=== PATIENT | female | born 1995 | race Caucasian/White ===

== ENCOUNTER 2018-11-22 17:41 | Inpatient (IN) | payer OTHER ==
[~2018-11-22] VITALS: Ht 170.2 cm; Wt 64.6 kg
[2018-11-22 18:30] VITALS: BP 122/73; PULSE 87; RESP 18
[2018-11-22 20:03] VITALS: BP 113/55; PULSE 87; RESP 18
[2018-11-22 20:07] VITALS: Ht 170.2 cm; Wt 64.6 kg
[2018-11-22] MEDS ORDERED: METH10TA2 PO (20:20)
[2018-11-22] MEDS ORDERED: DEXTROSE 5%-0.45% NACL 1,000 ML IV SCH (21:00)
[2018-11-22] MEDS ORDERED: NACL 0.9% 3 ML SYG IV SCH (21:00)
[2018-11-22] MEDS ORDERED: ONDANSETRON 4 MG INJ IV PRN (21:00)
--- NOTE | 2018-11-22 21:21 | HP ---
Date/Time of Note Date/Time of Note DATE: 11/22/18 TIME: 21:21 Assessment/Plan VTE Prophylaxis SCD applied (from Nsg): Yes Pharmacological prophylaxis: NA/contraindicated Pharm contraindication: low risk/ambulating, other (Patient with choledocholithiasis. Awaiting surgical and GI evaluation) Assessment/Plan Assessment/Plan 1. Choledocholithiasis -Ultrasound at the outside facility shows a dilated CBD measuring 10 mm. No gallstones or pericholecystic fluid -Keep n.p.o. with IV fluid -MRCP -GI and surgical consult 2. History of heroin abuse: On methadone HPI/ROS Admit Date/Time Admit Date/Time Nov 22, 2018 at 18:17 Hx of Present Illness This is a 22-year-old female with a history of heroin, currently on methadone who initially presented to an outside hospital complaining of abdominal pain. Symptom has been progressively getting worse for the past several weeks. Pain is mainly localized in the right upper quadrant area. She also reported intermittent nausea and vomiting. At the outside facility, ultrasound shows a dilated CBD measuring 10 mm, but no gallstones or pericholecystic fluid. AST and ALT slightly elevated at 48 and 85 respectively. T-bili WNL. WBC 9 PMH/Family/Social Past Medical History Medical History: other (See HPI) Medications Current Medications Methadone HCl (Methadone) 85 mg ONCE ONCE PO ; Start 11/23/18 at 07:00; Stop 11/23/18 at 07:01; Status UNV Dextrose/Sodium Chloride 1,000 ml @ 100 mls/hr Q10H IV ; Start 11/22/18 at 20:59 IV Flush (NS 3 ml) 3 ml PER PROTOCOL IV ; Start 11/22/18 at 21:00 Ondansetron HCl (Zofran Inj) 4 mg Q6H PRN IV NAUSEA/VOMITING; Start 11/22/18 at 21:00 Methadone HCl (Methadone) 85 mg DAILY PO ; Start 11/23/18 at 09:00; Status UNV Coded Allergies: No Known Allergies (Verified Allergy, Unknown, 03/10/12) Past Surgical History Past Surgical Hx: other (See HPI) Family History Significant Family History: no pertinent family hx Social History Alcohol Use: none Smoking Status: Unknown if ever smoked Drug Use: other (History of heroin abuse, currently on methadone) Exam/Review of Systems Vital Signs Vitals Vital Signs Date Temp Pulse Resp B/P (MAP) Pulse Ox O2 O2 Flow FiO2 Time Delivery Rate 11/22/18 98.1 87 18 113/55 99 20:03 (74) 11/22/18 Room Air 18:30 Exam Constitutional: alert, oriented, well developed Head: normocephalic, atraumatic Eyes: EOMI, PERRL Respiratory: clear to auscultation, normal air movement Cardiovascular: regular rate and rhythm Gastrointestinal: soft, tender Extremities: normal pulses RAE BERMAN MD Nov 22, 2018 21:21
[2018-11-22] MEDS: DEXTROSE 5%-0.45% NACL 1,000 ML IV SCH (22:14)
[2018-11-22] MEDS: KETOROLAC 30 MG INJ IV PRN (22:14)
[2018-11-23] VITALS (13 sets, daily range): BP systolic 103–126; BP diastolic 60–82; PULSE 79–100; RESP 12–18
[2018-11-23] MEDS: traMADol 50 MG TAB PO PRN (03:18)
[2018-11-23] MEDS: DEXTROSE 5%-0.45% NACL 1,000 ML IV SCH ×3 (06:12→22:20)
[2018-11-23] MEDS: KETOROLAC 30 MG INJ IV PRN ×3 (06:14→21:37)
[2018-11-23] MEDS: METHADONE 10 MG TAB PO SCH (06:51)
[2018-11-23] MEDS ORDERED: METHADONE 10 MG TAB PO ONE (07:00)
[2018-11-23] MEDS ORDERED: LORAZEPAM 2 MG INJ IV ONE (10:30)
[2018-11-23] MEDS ORDERED: AL HYDROX/MG HYDROX/SIMETH 30 ML CUP PO PRN (13:00)
--- NOTE | 2018-11-23 13:40 | PN ---
Date/Time of Note Date/Time of Note DATE: 11/23/18 TIME: 13:19 Assessment/Plan VTE Prophylaxis Risk score (from Ns)>0 risk: 0 SCD applied (from Ns): Yes Pharmacological prophylaxis: other Pharm contraindication: other Lines/Catheters IV [facility]ter Type (from [facility]): Peripheral IV Assessment/Plan Assessment/Plan 1. Choledocholithiasis, questionable small distal CBD stone, needs ERCP by GI, surgery consult for cholecystectomy after 2. History of heroin abuse: On methadone Result Diagram: 11/23/18 0546 11/23/18 0546 Results 24hrs Laboratory Tests Test 11/23/18 05:46 White Blood Count 6.3 Red Blood Count 3.75 L Hemoglobin 10.9 L Hematocrit 34.2 L Mean Corpuscular Volume 91.2 Mean Corpuscular Hemoglobin 29.1 Mean Corpuscular Hemoglobin Concent 31.9 L Red Cell Distribution Width 12.8 Platelet Count 255 Mean Platelet Volume 9.2 Immature Granulocytes % 0.200 Neutrophils % 40.1 Lymphocytes % 42.4 Monocytes % 9.3 Eosinophils % 7.5 H Basophils % 0.5 Nucleated Red Blood Cells % 0.0 Immature Granulocytes # 0.010 Neutrophils # 2.5 Lymphocytes # 2.7 Monocytes # 0.6 Eosinophils # 0.5 Basophils # 0.0 Nucleated Red Blood Cells # 0.0 Sodium Level 138 Potassium Level 4.3 Chloride Level 104 Carbon Dioxide Level 28 Anion Gap 6 Blood Urea Nitrogen 9 Creatinine 0.61 Est Glomerular Filtrat Rate mL/min > 60 Glucose Level 98 Hemoglobin A1c 5.1 Calcium Level 8.6 Phosphorus Level 4.1 Magnesium Level 2.0 Total Bilirubin 0.2 Direct Bilirubin 0.00 Indirect Bilirubin 0.2 Aspartate Amino Transf (AST/SGOT) 59 H Alanine Aminotransferase (ALT/SGPT) 84 H Alkaline Phosphatase 73 Total Protein 5.8 L Albumin 3.1 L Globulin 2.70 Albumin/Globulin Ratio 1.14 Triglycerides Level 52 Cholesterol Level 127 LDL Cholesterol, Calculated 70 HDL Cholesterol 47 Cholesterol/HDL Ratio 2.7 Lipase 27 Subjective 24 Hr Interval Summary Free Text/Dictation abdominal pain Exam/Review of Systems Exam Vitals Vital Signs Date Temp Pulse Resp B/P (MAP) Pulse Ox O2 O2 Flow FiO2 Time Delivery Rate 11/23/18 98.6 91 18 112/67 94 08:00 (82) 11/23/18 Room Air 02:38 Intake and Output 11/22/18 11/22/18 11/23/18 1515:00 23:00 07:00 IntakeIntake Total 1000 ml BalanceBalance 1000 ml Constitutional: alert, oriented, well developed Psych: no complaints, nl mood/affect Head: normocephalic, atraumatic Eyes: nl conjunctiva, EOMI, nl lids ENMT: nl external ears & nose, nl lips & teeth, nl nasal mucosa & septum Neck: supple, non-tender Respiratory: clear to auscultation, normal air movement; No congested cough, No crackles/rales, No diminished breath sounds, No intercostal retraction, No labored breathing, No respirations, No tactile fremitus, No wheezing, No other Cardiovascular: regular rate and rhythm, nl pulses; No bruits, No diastolic murmur, No edema, No gallop, No irregular rhythm, No jugular venous distention (JVD), No murmurs/extra sounds, No rub, No systolic murmur, No S3, No S4, No other Gastrointestinal: soft, nl liver, spleen, other (epigastric and right upper abdominal tenderness) Musculoskeletal: nl extremities to inspection Extremities: normal pulses; No calf tenderness, No cyanosis, No clubbing, No edema, No pitting pedal edema, No palpable cord, No tenderness, No other Neurological: SPANISHER II-XII intact, nl mental status, nl speech, nl strength Skin: nl turgor Results Results 24hrs Laboratory Tests Test 11/23/18 05:46 White Blood Count 6.3 Red Blood Count 3.75 L Hemoglobin 10.9 L Hematocrit 34.2 L Mean Corpuscular Volume 91.2 Mean Corpuscular Hemoglobin 29.1 Mean Corpuscular Hemoglobin Concent 31.9 L Red Cell Distribution Width 12.8 Platelet Count 255 Mean Platelet Volume 9.2 Immature Granulocytes % 0.200 Neutrophils % 40.1 Lymphocytes % 42.4 Monocytes % 9.3 Eosinophils % 7.5 H Basophils % 0.5 Nucleated Red Blood Cells % 0.0 Immature Granulocytes # 0.010 Neutrophils # 2.5 Lymphocytes # 2.7 Monocytes # 0.6 Eosinophils # 0.5 Basophils # 0.0 Nucleated Red Blood Cells # 0.0 Sodium Level 138 Potassium Level 4.3 Chloride Level 104 Carbon Dioxide Level 28 Anion Gap 6 Blood Urea Nitrogen 9 Creatinine 0.61 Est Glomerular Filtrat Rate mL/min > 60 Glucose Level 98 Hemoglobin A1c 5.1 Calcium Level 8.6 Phosphorus Level 4.1 Magnesium Level 2.0 Total Bilirubin 0.2 Direct Bilirubin 0.00 Indirect Bilirubin 0.2 Aspartate Amino Transf (AST/SGOT) 59 H Alanine Aminotransferase (ALT/SGPT) 84 H Alkaline Phosphatase 73 Total Protein 5.8 L Albumin 3.1 L Globulin 2.70 Albumin/Globulin Ratio 1.14 Triglycerides Level 52 Cholesterol Level 127 LDL Cholesterol, Calculated 70 HDL Cholesterol 47 Cholesterol/HDL Ratio 2.7 Lipase 27 Medications Medication Current Medications Dextrose/Sodium Chloride 1,000 ml @ 100 mls/hr Q10H IV Last administered on 11/23/18 06:12; Admin Dose 100 MLS/HR; Start 11/22/18 at 20:59 IV Flush (NS 3 ml) 3 ml PER PROTOCOL IV ; Start 11/22/18 at 21:00 Ondansetron HCl (Zofran Inj) 4 mg Q6H PRN IV NAUSEA/VOMITING; Start 11/22/18 at 21:00 Methadone HCl (Methadone) 85 mg DAILY@0600 PO Last administered on 11/23/18 06:51; Admin Dose 85 MG; Start 11/23/18 at 06:00 Ketorolac Tromethamine (Toradol) 30 mg Q6H PRN IV PAIN LEVEL 1-3 Last admi nistered on 11/23/18at 06:14; Admin Dose 30 MG; Start 11/22/18 at 22:00; Stop 11/25/18 at 21:59 Tramadol HCl (Ultram) 50 mg Q6H PRN PO MODERATE PAIN LEVEL 4-6 Last administered on 11/23/18at 03:18; Admin Dose 50 MG; Start 11/23/18 at 03:30 Al Hydrox/Mg Hydrox/Simethicone (Mag-Al Plus) 30 ml Q6H PRN PO GASTROINTESTINAL UPSET Last administered on 11/23/18at 12:56; Admin Dose 30 ML; Start 11/23/18 at 13:00 JALEN HOGAN MD Nov 23, 2018 13:29
--- NOTE | 2018-11-23 16:11 | CONS ---
Assessment/Plan Assessment/Plan Assessment/Plan (Daily) Assessment: Cholelithiasis Questionable choledocholithiasis on MRCP Nausea/vomiting Right upper quadrant pain Transaminitis Heroin abuse -on methadone treatment Plan: EGD today -rule out peptic ulcer disease Keep n.p.o. 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 Patient reports her symptoms started 1-1/2 months ago with intermittent abdominal pain, nausea and nonbloody vomiting. Transaminitis was noted on admission with normal bilirubin. MRCP shows mildly dilated common bile duct with questionable stone. Patient reports history of dyspepsia in the past. She is on methadone treatment for heroin addiction. Currently denies nausea, vomiting, fever or diarrhea. No history of EGD or colonoscopy in the past. We will schedule the patient for EGD today to rule out peptic ulcer disease. Risks and benefits of the procedure have been discussed with the patient. Patient is agreeable to the procedure. Gastrointestinal: no complaints (See HPI) Past Medical History Medical History: other (See HPI) Home Meds Reported Medications Methadone Hcl* (Methadone*) 10 Mg Tab, 85 MG PO, TAB 11/22/18 [None] No Conflict Check 03/10/12 Medications Current Medications Dextrose/Sodium Chloride 1,000 ml @ 100 mls/hr Q10H IV Last administered on 11/23/18at 06:12; Admin Dose 100 MLS/HR; Start 11/22/18 at 20:59 IV Flush (NS 3 ml) 3 ml PER PROTOCOL IV ; Start 11/22/18 at 21:00 Ondansetron HCl (Zofran Inj) 4 mg Q6H PRN IV NAUSEA/VOMITING; Start 11/22/18 at 21:00 Methadone HCl (Methadone) 85 mg DAILY@0600 PO Last administered on 11/23/18at 06:51; Admin Dose 85 MG; Start 11/23/18 at 06:00 Ketorolac Tromethamine (Toradol) 30 mg Q6H PRN IV PAIN LEVEL 1-3 Last administered on 11/23/18at 14:52; Admin Dose 30 MG; Start 11/22/18 at 22:00; Stop 11/25/18 at 21:59 Tramadol HCl (Ultram) 50 mg Q6H PRN PO MODERATE PAIN LEVEL 4-6 Last administered on 11/23/18at 03:18; Admin Dose 50 MG; Start 11/23/18 at 03:30 Al Hydrox/Mg Hydrox/Simethicone (Mag-Al Plus) 30 ml Q6H PRN PO GASTROINTESTINAL UPSET Last administered on 11/23/18at 12:56; Admin Dose 30 ML; Start 11/23/18 at 13:00 Allergies: Coded Allergies: No Known Allergies (Verified Allergy, Unknown, 03/10/12) Past Surgical History Past Surgical Hx: other (See HPI) Social History Alcohol Use: none Smoking Status: Unknown if ever smoked Drug Use: heroin, other (History of heroin abuse, currently on methadone) Exam/Review of Systems Exam Vitals Vital Signs Date Temp Pulse Resp B/P (MAP) Pulse Ox O2 O2 Flow FiO2 Time Delivery Rate 11/23/18 98.6 100 18 119/72 96 14:00 (88) 11/23/18 Room Air 02:38 Intake and Output 11/22/18 11/22/18 11/23/18 1515:00 23:00 07:00 IntakeIntake Total 1000 ml BalanceBalance 1000 ml Exam PHYSICAL EXAMINATION: GENERAL: Well developed, well nourished, alert & oriented x 3, in no acute distress SKIN: No lesions, no stigmata chronic liver disease, no evidence of bleeding diathesis LYMPHATIC: No palpable lymphadenopathy. HEAD: Normocephalic, atraumatic, no tenderness. EYES: Pupils equal reactive to light and accommodation, full extraocular movements, sclera clear, non-icteric, no discharge. EARS/NOSE AND THROAT: Ears normal, nose normal, oropharynx normal, oral membranes well hydrated without lesions. NECK: Supple, no masses, thyroid normal, JVP within normal limits, carotids normal without bruits. CHEST: Inspection within normal limits. CARDIOVASCULAR: Heart: Regular rate and rhythm, no murmurs, gallops or rubs. Peripheral pulses present within normal limits, no cyanosis, clubbing or edemas. No pulsatile abdominal mass RESPIRATORY: Lungs clear to auscultation and percussion, no wheezing, no rubs GASTROINTESTINAL AND LIVER: Abdomen: Soft, generalized tenderness, non- distended, no hernias, no masses, no organomegaly, no ascites, no guarding, no rebound tenderness, normoactive bowel sounds. Rectal: Deferred. GENITOURINARY: Female genitalia within normal limits. EXTREMITIES: No cyanosis, clubbing or edema. Results Result Diagram: 11/23/18 0546 11/23/18 0546 Results 24hrs Laboratory Tests Test 11/23/18 05:46 White Blood Count 6.3 Red Blood Count 3.75 L Hemoglobin 10.9 L Hematocrit 34.2 L Mean Corpuscular Volume 91.2 Mean Corpuscular Hemoglobin 29.1 Mean Corpuscular Hemoglobin Concent 31.9 L Red Cell Distribution Width 12.8 Platelet Count 255 Mean Platelet Volume 9.2 Immature Granulocytes % 0.200 Neutrophils % 40.1 Lymphocytes % 42.4 Monocytes % 9.3 Eosinophils % 7.5 H Basophils % 0.5 Nucleated Red Blood Cells % 0.0 Immature Granulocytes # 0.010 Neutrophils # 2.5 Lymphocytes # 2.7 Monocytes # 0.6 Eosinophils # 0.5 Basophils # 0.0 Nucleated Red Blood Cells # 0.0 Sodium Level 138 Potassium Level 4.3 Chloride Level 104 Carbon Dioxide Level 28 Anion Gap 6 Blood Urea Nitrogen 9 Creatinine 0.61 Est Glomerular Filtrat Rate mL/min > 60 Glucose Level 98 Hemoglobin A1c 5.1 Calcium Level 8.6 Phosphorus Level 4.1 Magnesium Level 2.0 Total Bilirubin 0.2 Direct Bilirubin 0.00 Indirect Bilirubin 0.2 Aspartate Amino Transf (AST/SGOT) 59 H Alanine Aminotransferase (ALT/SGPT) 84 H Alkaline Phosphatase 73 Total Protein 5.8 L Albumin 3.1 L Globulin 2.70 Albumin/Globulin Ratio 1.14 Triglycerides Level 52 Cholesterol Level 127 LDL Cholesterol, Calculated 70 HDL Cholesterol 47 Cholesterol/HDL Ratio 2.7 Lipase 27 Medications Medication Current Medications Dextrose/Sodium Chloride 1,000 ml @ 100 mls/hr Q10H IV Last administered on 11/23/18at 06:12; Admin Dose 100 MLS/HR; Start 11/22/18 at 20:59 IV Flush (NS 3 ml) 3 ml PER PROTOCOL IV ; Start 3/28/19 at 21:00 Ondansetron HCl (Zofran Inj) 4 mg Q6H PRN IV NAUSEA/VOMITING; Start 11/22/18 at 21:00 Methadone HCl (Methadone) 85 mg DAILY@0600 PO Last administered on 11/23/18at 06:51; Admin Dose 85 MG; Start 11/23/18 at 06:00 Ketorolac Tromethamine (Toradol) 30 mg Q6H PRN IV PAIN LEVEL 1-3 Last administered on 11/23/18at 14:52; Admin Dose 30 MG; Start 11/22/18 at 22:00; Stop 11/25/18 at 21:59 Tramadol HCl (Ultram) 50 mg Q6H PRN PO MODERATE PAIN LEVEL 4-6 Last administered on 11/23/18at 03:18; Admin Dose 50 MG; Start 11/23/18 at 03:30 Al Hydrox/Mg Hydrox/Simethicone (Mag-Al Plus) 30 ml Q6H PRN PO GASTROINTESTINAL UPSET Last administered on 11/23/18at 12:56; Admin Dose 30 ML; Start 11/23/18 at 13:00 MARK MADISON NP Nov 23, 2018 15:40
--- NOTE | 2018-11-23 16:21 | PREAC ---
Date/Time of Note Date/Time of Note DATE: 11/23/18 TIME: 16:20 Anesthesia Eval and Record Evaluation Time Pre-Procedure Interview DATE: 11/23/18 TIME: 16:20 Age 22 Sex female NPO: 8 hrs Preoperative diagnosis ABD PAIN Planned procedure EGD Past Medical History Past Medical History: Includes GI: Other (GALLSTONES, ABD PAIN, NAUSEA) Recreational drugs: Heroin (ON METHADONE, LAST HEROIN 2 YEARS AGO) Surgery & Anesthesia Issues No known issue Meds Anticoagulation: No Beta Fredis within 24 hr: No Reason Beta Fredis not given: Pt. not on B-Fredis Reported Medications Methadone Hcl* (Methadone*) 10 Mg Tab, 85 MG PO, TAB 11/22/18 [None] No Conflict Check 03/10/12 Current Medications Dextrose/Sodium Chloride 1,000 ml @ 100 mls/hr Q10H IV Last administered on 11/23/18at 06:12; Admin Dose 100 MLS/HR; Start 11/22/18 at 20:59 IV Flush (NS 3 ml) 3 ml PER PROTOCOL IV ; Start 11/22/18 at 21:00 Ondansetron HCl (Zofran Inj) 4 mg Q6H PRN IV NAUSEA/VOMITING; Start 11/22/18 at 21:00 Methadone HCl (Methadone) 85 mg DAILY@0600 PO Last administered on 11/23/18at 06:51; Admin Dose 85 MG; Start 11/23/18 at 06:00 Ketorolac Tromethamine (Toradol) 30 mg Q6H PRN IV PAIN LEVEL 1-3 Last administered on 11/23/18at 14:52; Admin Dose 30 MG; Start 11/22/18 at 22:00; Stop 11/25/18 at 21:59 Tramadol HCl (Ultram) 50 mg Q6H PRN PO MODERATE PAIN LEVEL 4-6 Last administered on 11/23/18at 03:18; Admin Dose 50 MG; Start 11/23/18 at 03:30 Al Hydrox/Mg Hydrox/Simethicone (Mag-Al Plus) 30 ml Q6H PRN PO GASTROINTESTINAL UPSET Last administered on 11/23/18at 12:56; Admin Dose 30 ML; Start 11/23/18 at 13:00 Meds reviewed: Yes Allergies Coded Allergies: No Known Allergies (Verified Allergy, Unknown, 03/10/12) Allergies Reviewed: Yes Labs/Studies Labs Reviewed: Reviewed by anesthesiologist Result Diagram: 11/23/18 0546 11/23/18 0546 Laboratory Tests 11/23/18 05:46 test: Negative Pre-procedure Exam Last vitals Vital Signs Date Temp Pulse Resp B/P (MAP) Pulse Ox O2 O2 Flow FiO2 Time Delivery Rate 11/23/18 98.6 82 16 126/82 99 Room Air 16:07 (97) Airway: Adequate mouth opening, Adequate thyromental dist Mallampati: Mallampati II Teeth: Normal Lung: Normal Heart: Normal ASA Physical Status ASA physical status: 2 Emergency: E Planned Anesthetic General/MAC: Mask, MAC Planned Pain Management Parenteral pain med Pre-operative Attestations Prior to commencing anesthesia and surgery, the patient was re-evaluated, there was verification of: *The patient's identity *The results of appropriate recent lab work and preoperative vital signs *The above evaluation not changing prior to induction *Anesthetic plan, risk benefits, alternative and complications discussed with patient/family; questions answered; patient/family understands, accepts and wishes to proceed. DARNELL BRADLEY Nov 23, 2018 16:21
[2018-11-23] MEDS ORDERED: ONDANSETRON 4 MG INJ IV PRN ×2 (16:30→17:30)
[2018-11-23] MEDS ORDERED: PROPOFOL 20 ML ONE (16:57)
[2018-11-23] MEDS ORDERED: LIDOCAINE 2% (SDV) 5 ML INJ ONE (16:57)
[2018-11-23] MEDS ORDERED: MIDAZOLAM 1 MG/ML 2 ML INJ ONE (16:58)
--- NOTE | 2018-11-23 17:00 | HPN ---
Date/Time of Note Date/Time of Note DATE: 11/23/18 TIME: 16:59 Interval H&P Admission Note Pt. seen H&P reviewed: No system changes CATERINA HAYWARD Nov 23, 2018 17:00
[2018-11-23] MEDS ORDERED: FENTAnyl 50 MCG/ML VIAL IV PRN ×3 (17:30)
[2018-11-23] MEDS ORDERED: MIDAZOLAM 1 MG/ML 2 ML INJ IV PRN (17:30)
--- NOTE | 2018-11-23 17:30 | PAC ---
Date/Time of Note Date/Time of Note DATE: 11/23/18 TIME: 17:29 Post-Anesthesia Notes Post-Anesthesia Note Last documented vital signs HR 88 BP 108/56 SPO2 100% RR 14 TEMP 98 Vital Signs Date Temp Pulse Resp B/P (MAP) Pulse Ox O2 O2 Flow FiO2 Time Delivery Rate 11/23/18 97.8 92 14 118/73 100 Room Air 16:58 (88) Activity: WNL Respiratory function: WNL Cardiovascular function: WNL Mental status: Baseline Pain reasonably controlled: Yes Hydration appropriate: Yes Nausea/Vomiting absent: Yes DARNELL BRADLEY Nov 23, 2018 17:30
[2018-11-23] MEDS: NICOTINE (21 MG/24 HR) PATCH TRANSDERM SCH (22:21)
[2018-11-24 02:00] VITALS: BP 121/67; PULSE 83; RESP 17
[2018-11-24] MEDS: traMADol 50 MG TAB PO PRN ×2 (02:31→17:13)
[2018-11-24] MEDS: METHADONE 10 MG TAB PO SCH (05:42)
[2018-11-24] MEDS: DEXTROSE 5%-0.45% NACL 1,000 ML IV SCH ×2 (05:43→15:21)
[2018-11-24] MEDS ORDERED: MAGNESIUM HYDROXIDE 30ML CUP PO PRN (06:00)
[2018-11-24 08:00] VITALS: BP 115/68; PULSE 87; RESP 16
[2018-11-24] MEDS: KETOROLAC 30 MG INJ IV PRN ×2 (13:20→21:39)
[2018-11-24 14:06] VITALS: BP 118/56; PULSE 84; RESP 17
--- NOTE | 2018-11-24 14:09 | CONS ---
Assessment/Plan Assessment/Plan Assessment/Plan (Daily) Severe gastritis Asymptomatic cholelithiasis No surgical indication for lap ross as patient is asymptomatic from her gallstones. . Consultation Date/Type/Reason Admit Date/Time Nov 22, 2018 at 18:17 Date/Time of Note DATE: 11/24/18 TIME: 14:06 Hx of Present Illness Patient is a 22-year-old female with a history of heroin abuse who presents to the ER with right upper quadrant pain, nausea and emesis. She states she has had pain for approximately 6 weeks. She states the pain is mostly to her left upper quadrant as well as bilateral lower quadrants. Sometimes the pain radiates to her back. She is occasionally has non-bloody emesis. She has a history of reflux and heartburn in the past. She is currently on methadone treatment for heroin addiction. She was admitted for EGD to rule out peptic ulcer disease. Further, when hospitalized at [facility], there was questionable cholelithiasis. MRCP here showed a slightly dilated common duct with gallstones. I was called for consultation concerning gallstones. This is a 22-year-old female with a history of heroin abuse who is presenting with symptoms of right upper quadrant pain, nausea and vomiting. Patient reports her symptoms started 1-1/2 months ago with intermittent abdominal pain, nausea and nonbloody vomiting. Transaminitis was noted on admission with normal bilirubin. MRCP shows mildly dilated common bile duct with questionable stone. Patient reports history of dyspepsia in the past. She is on methadone treatment for heroin addiction. Currently denies nausea, vomiting, fever or diarrhea. No history of EGD or colonoscopy in the past. We will schedule the patient for EGD today to rule out peptic ulcer disease. Risks and benefits of the procedure have been discussed with the patient. Patient is agreeable to the procedure. Gastrointestinal: no complaints (See HPI) Past Medical History Medical History: other (See HPI) Home Meds Reported Medications Methadone Hcl* (Methadone*) 10 Mg Tab, 85 MG PO, TAB 11/22/18 [None] No Conflict Check 03/10/12 Medications Current Medications Dextrose/Sodium Chloride 1,000 ml @ 100 mls/hr Q10H IV Last administered on 11/24/18at 05:43; Admin Dose 100 MLS/HR; Start 11/22/18 at 20:59 IV Flush (NS 3 ml) 3 ml PER PROTOCOL IV ; Start 11/22/18 at 21:00 Ondansetron HCl (Zofran Inj) 4 mg Q6H PRN IV NAUSEA/VOMITING; Start 11/22/18 at 21:00 Methadone HCl (Methadone) 85 mg DAILY@0600 PO Last administered on 11/24/18at 05:42; Admin Dose 85 MG; Start 11/23/18 at 06:00 Ketorolac Tromethamine (Toradol) 30 mg Q6H PRN IV PAIN LEVEL 1-3 Last administered on 11/24/18 13:20; Admin Dose 30 MG; Start 11/22/18 at 22:00; Stop 11/25/18 at 21:59 Tramadol HCl (Ultram) 50 mg Q6H PRN PO MODERATE PAIN LEVEL 4-6 Last administered on 11/24/18at 02:31; Admin Dose 50 MG; Start 11/23/18 at 03:30 Al Hydrox/Mg Hydrox/Simethicone (Mag-Al Plus) 30 ml Q6H PRN PO GASTROINTESTINAL UPSET Last administered on 11/23/18at 12:56; Admin Dose 30 ML; Start 11/23/18 at 13:00 Nicotine (Nicoderm 21 Mg/ 24hr) 1 patch DAILY TRANSDERM Last administered on 11/23/18 22:21; Admin Dose 1 PATCH; Start 11/23/18 at 22:00 Magnesium Hydroxide (Milk Of Mag) 30 ml BID PRN PO CONSTIPATION Last administered on 11/24/18 08:30; Admin Dose 30 ML; Start 11/24/18 at 06:00 Allergies: Coded Allergies: No Known Allergies (Verified Allergy, Unknown, 03/10/12) Past Surgical History Past Surgical Hx: other (See HPI) Social History Alcohol Use: none Smoking Status: Unknown if ever smoked Drug Use: heroin, other (History of heroin abuse, currently on methadone) Exam/Review of Systems Exam Vitals Vital Signs Date Temp Pulse Resp B/P (MAP) Pulse Ox O2 O2 Flow FiO2 Time Delivery Rate 11/24/18 98.2 87 16 115/68 98 Room Air 08:00 (84) 11/23/18 3.0 17:36 Intake and Output 11/23/18 11/23/18 11/24/18 1515:00 23:00 07:00 IntakeIntake Total 1100 ml 1000 ml BalanceBalance 1100 ml 1000 ml Constitutional: alert, oriented, well developed Head: normocephalic ENMT: nl external ears & nose Neck: supple Respiratory: clear to auscultation Cardiovascular: regular rate and rhythm, nl pulses Gastrointestinal: soft, other (Some slight tenderness to all 4 quadrants.) Neurological: HOURLY ASSOCIATE II-XII intact, nl mental status, nl speech Skin: nl turgor, rash or lesions Results Result Diagram: 11/24/1843611/24/187 Results 24hrs Laboratory Tests Test 11/24/18 04:37 White Blood Count 7.3 Red Blood Count 3.53 L Hemoglobin 10.4 L Hematocrit 32.0 L Mean Corpuscular Volume 90.7 Mean Corpuscular Hemoglobin 29.5 Mean Corpuscular Hemoglobin Concent 32.5 Red Cell Distribution Width 12.5 Platelet Count 249 Mean Platelet Volume 9.4 Immature Granulocytes % 0.100 Neutrophils % 52.8 Lymphocytes % 31.5 Monocytes % 8.6 Eosinophils % 6.6 Basophils % 0.4 Nucleated Red Blood Cells % 0.0 Immature Granulocytes # 0.010 Neutrophils # 3.9 Lymphocytes # 2.3 Monocytes # 0.6 Eosinophils # 0.5 Basophils # 0.0 Nucleated Red Blood Cells # 0.0 Sodium Level 138 Potassium Level 4.1 Chloride Level 103 Carbon Dioxide Level 28 Anion Gap 7 Blood Urea Nitrogen 10 Creatinine 0.64 Est Glomerular Filtrat Rate mL/min > 60 Glucose Level 120 Calcium Level 8.4 Total Bilirubin 0.2 Direct Bilirubin 0.00 Indirect Bilirubin 0.2 Aspartate Amino Transf (AST/SGOT) 58 H Alanine Aminotransferase (ALT/SGPT) 95 H Alkaline Phosphatase 65 Total Protein 5.6 L Albumin 3.0 L Globulin 2.60 Albumin/Globulin Ratio 1.15 Hepatitis B Surface Antigen NEGATIVE Hepatitis C Antibody NEGATIVE Imaging Imaging atient: YARELY LYNN : 1995 Age: 22 Sex: F MR #: [id number] DOS: 11/23/18 0000 Ordering MD: RAE BERMAN MD Location: [facility] Room/Bed: [facility] PROCEDURE: MRCP CLINICAL INDICATION: Abdominal pain TECHNIQUE: Coronal and axial T2 Haste, coronal and axial thin slab MRCP images. COMPARISON: None the gallbladder is physiologically distended. There is low signal/calcified stones in the gallbladder. There is no gallbladder wall thickening or pericholecystic fluid. The common bile duct is mildly dilated measuring 7 mm. There is questionable small stone in the distal common bile duct. No significant intrahepatic duct dilatation is seen. The pancreatic duct is normal in caliber. Visualized portions of the liver, pancreas, spleen, and kidneys are within normal limits. FINDINGS: The gallbladder is physiologically distended. There is low signal/calcified stones in the gallbladder. There is no gallbladder wall thickening or billie cholecystic fluid. The common bile duct is mildly dilated measuring 7 mm. There is questionable small stone in the distal common bile duct. No significant intrahepatic duct dilatation is seen. The pancreatic duct is normal in caliber. Visualized portions of the liver, pancreas, spleen, and kidneys are within normal limits. IMPRESSION: 1. Cholelithiasis. There is no gallbladder wall thickening or pericholecystic fluid to suggest acute cholecystitis. 2. Minimally dilated common bile duct with questionable small stone in the distal common bile duct. There is no intrahepatic duct dilatation. RPTAT: HH .Harrison Condon MD, MD Date Time Electronically viewed and signed by .Harrison Condon MD, MD on 11/23/2018 14:34 .W/ CC: RAE BERMAN MD Medications Medication Current Medications Dextrose/Sodium Chloride 1,000 ml @ 100 mls/hr Q10H IV Last administered on 11/24/18at 05:43; Admin Dose 100 MLS/HR; Start 11/22/18 at 20:59 IV Flush (NS 3 ml) 3 ml PER PROTOCOL IV ; Start 11/22/18 at 21:00 Ondansetron HCl (Zofran Inj) 4 mg Q6H PRN IV NAUSEA/VOMITING; Start 11/22/18 at 21:00 Methadone HCl (Methadone) 85 mg DAILY@0600 PO Last administered on 11/24/18at 05:42; Admin Dose 85 MG; Start 11/23/18 at 06:00 Ketorolac Tromethamine (Toradol) 30 mg Q6H PRN IV PAIN LEVEL 1-3 Last administered on 11/24/18 13:20; Admin Dose 30 MG; Start 11/22/18 at 22:00; Stop 11/25/18 at 21:59 Tramadol HCl (Ultram) 50 mg Q6H PRN PO MODERATE PAIN LEVEL 4-6 Last administered on 11/24/18 02:31; Admin Dose 50 MG; Start 11/23/18 at 03:30 Al Hydrox/Mg Hydrox/Simethicone (Mag-Al Plus) 30 ml Q6H PRN PO GASTROINTESTINAL UPSET Last administered on 11/23/18 12:56; Admin Dose 30 ML; Start 11/23/18 at 13:00 Nicotine (Nicoderm 21 Mg/ 24hr) 1 patch DAILY TRANSDERM Last administered on 11/23/18 22:21; Admin Dose 1 PATCH; Start 11/23/18 at 22:00 Magnesium Hydroxide (Milk Of Mag) 30 ml BID PRN PO CONSTIPATION Last administered on 11/24/18 08:30; Admin Dose 30 ML; Start 11/24/18 at 06:00 SORAIDA ONTIVEROS MD Nov 24, 2018 14:09
--- NOTE | 2018-11-24 14:52 | PN ---
Date/Time of Note Date/Time of Note DATE: 11/24/18 TIME: 14:50 Assessment/Plan VTE Prophylaxis Risk score (from Ns)>0 risk: 1 SCD applied (from Ns): Yes SCD contraindicated: low risk/ambulating Pharmacological prophylaxis: heparin Lines/Catheters IV Catheter Type (from [facility]): Peripheral IV Assessment/Plan Problems: (1) Choledocholithiasis Status: Chronic Comment: Based on MRCP scanning this does not appear to be active gallbladder inflammation i.e. not active acute cholecystitis. There is however appear to be a stone in the common bile duct which may need to be addressed by gastroenterology. They are on the case and will evaluate. Regarding the possibility of gastroparesis given the number of medications she is on this may aggravate that. 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 (4) Anemia Comment: Basic workup Qualifiers: Anemia type: unspecified type Qualified Codes: D64.9 - Anemia, unspecified Result Diagram: 11/24/18 0437 11/24/18 0437 Results 24hrs Laboratory Tests Test 11/24/18 04:37 White Blood Count 7.3 Red Blood Count 3.53 L Hemoglobin 10.4 L Hematocrit 32.0 L Mean Corpuscular Volume 90.7 Mean Corpuscular Hemoglobin 29.5 Mean Corpuscular Hemoglobin Concent 32.5 Red Cell Distribution Width 12.5 Platelet Count 249 Mean Platelet Volume 9.4 Immature Granulocytes % 0.100 Neutrophils % 52.8 Lymphocytes % 31.5 Monocytes % 8.6 Eosinophils % 6.6 Basophils % 0.4 Nucleated Red Blood Cells % 0.0 Immature Granulocytes # 0.010 Neutrophils # 3.9 Lymphocytes # 2.3 Monocytes # 0.6 Eosinophils # 0.5 Basophils # 0.0 Nucleated Red Blood Cells # 0.0 Sodium Level 138 Potassium Level 4.1 Chloride Level 103 Carbon Dioxide Level 28 Anion Gap 7 Blood Urea Nitrogen 10 Creatinine 0.64 Est Glomerular Filtrat Rate mL/min > 60 Glucose Level 120 Calcium Level 8.4 Total Bilirubin 0.2 Direct Bilirubin 0.00 Indirect Bilirubin 0.2 Aspartate Amino Transf (AST/SGOT) 58 H Alanine Aminotransferase (ALT/SGPT) 95 H Alkaline Phosphatase 65 Total Protein 5.6 L Albumin 3.0 L Globulin 2.60 Albumin/Globulin Ratio 1.15 Hepatitis B Surface Antigen NEGATIVE Hepatitis C Antibody NEGATIVE Subjective 24 Hr Interval Summary Free Text/Dictation Patient reports she is still having abdominal pain which is coming over to her back. Constitutional: no complaints (Denies fevers chills or sweats) Respiratory: no complaints Cardiovascular: no complaints Gastrointestinal: pain (Diffuse pain) Musculoskeletal: no complaints Exam/Review of Systems Exam Vitals Vital Signs Date Temp Pulse Resp B/P (MAP) Pulse Ox O2 O2 Flow FiO2 Time Delivery Rate 11/24/18 98.2 87 16 115/68 98 Room Air 08:00 (84) 11/23/18 3.0 17:36 Intake and Output 11/23/18 11/23/18 11/24/18 1515:00 23:00 07:00 IntakeIntake Total 1100 ml 1000 ml BalanceBalance 1100 ml 1000 ml Exam Appears to be in mild distress Constitutional: alert, oriented Respiratory: clear to auscultation, normal air movement Cardiovascular: regular rate and rhythm, nl pulses Gastrointestinal: soft, nl liver, spleen, tender (Use non-rebound tender) Results Results 24hrs Laboratory Tests Test 11/24/18 04:37 White Blood Count 7.3 Red Blood Count 3.53 L Hemoglobin 10.4 L Hematocrit 32.0 L Mean Corpuscular Volume 90.7 Mean Corpuscular Hemoglobin 29.5 Mean Corpuscular Hemoglobin Concent 32.5 Red Cell Distribution Width 12.5 Platelet Count 249 Mean Platelet Volume 9.4 Immature Granulocytes % 0.100 Neutrophils % 52.8 Lymphocytes % 31.5 Monocytes % 8.6 Eosinophils % 6.6 Basophils % 0.4 Nucleated Red Blood Cells % 0.0 Immature Granulocytes # 0.010 Neutrophils # 3.9 Lymphocytes # 2.3 Monocytes # 0.6 Eosinophils # 0.5 Basophils # 0.0 Nucleated Red Blood Cells # 0.0 Sodium Level 138 Potassium Level 4.1 Chloride Level 103 Carbon Dioxide Level 28 Anion Gap 7 Blood Urea Nitrogen 10 Creatinine 0.64 Est Glomerular Filtrat Rate mL/min > 60 Glucose Level 120 Calcium Level 8.4 Total Bilirubin 0.2 Direct Bilirubin 0.00 Indirect Bilirubin 0.2 Aspartate Amino Transf (AST/SGOT) 58 H Alanine Aminotransferase (ALT/SGPT) 95 H Alkaline Phosphatase 65 Total Protein 5.6 L Albumin 3.0 L Globulin 2.60 Albumin/Globulin Ratio 1.15 Hepatitis B Surface Antigen NEGATIVE Hepatitis C Antibody NEGATIVE Medications Medication Current Medications Dextrose/Sodium Chloride 1,000 ml @ 100 mls/hr Q10H IV Last administered on 11/24/18 05:43; Admin Dose 100 MLS/HR; Start 11/22/18 at 20:59 IV Flush (NS 3 ml) 3 ml PER PROTOCOL IV ; Start 11/22/18 at 21:00 Ondansetron HCl (Zofran Inj) 4 mg Q6H PRN IV NAUSEA/VOMITING; Start 11/22/18 at 21:00 Methadone HCl (Methadone) 85 mg DAILY@0600 PO Last administered on 11/24/18 05:42; Admin Dose 85 MG; Start 11/23/18 at 06:00 Ketorolac Tromethamine (Toradol) 30 mg Q6H PRN IV PAIN LEVEL 1-3 Last administered on 11/24/18 13:20; Admin Dose 30 MG; Start 11/22/18 at 22:00; Stop 11/25/18 at 21:59 Tramadol HCl (Ultram) 50 mg Q6H PRN PO MODERATE PAIN LEVEL 4-6 Last administered on 11/24/18 02:31; Admin Dose 50 MG; Start 11/23/18 at 03:30 Al Hydrox/Mg Hydrox/Simethicone (Mag-Al Plus) 30 ml Q6H PRN PO GASTROINTESTINAL UPSET Last administered on 11/23/18 12:56; Admin Dose 30 ML; Start 11/23/18 at 13:00 Nicotine (Nicoderm 21 Mg/ 24hr) 1 patch DAILY TRANSDERM Last administered on 11/23/18 22:21; Admin Dose 1 PATCH; Start 11/23/18 at 22:00 Magnesium Hydroxide (Milk Of Mag) 30 ml BID PRN PO CONSTIPATION Last administered on 11/24/18 08:30; Admin Dose 30 ML; Start 11/24/18 at 06:00 DAWN PHAN MD Nov 24, 2018 14:52
[2018-11-24] MEDS ORDERED: PANTOPRAZOLE (EC) 40 MG TAB PO ONE (15:00)
--- NOTE | 2018-11-24 15:25 | PN ---
Date/Time of Note Date/Time of Note DATE: 11/24/18 TIME: 14:59 Assessment/Plan VTE Prophylaxis Risk score (from Nsg)>0 risk: 1 SCD applied (from Nsg): Yes SCD contraindicated: low risk/ambulating Pharmacological prophylaxis: heparin Lines/Catheters IV Catheter Type (from Nrsg): Peripheral IV Assessment/Plan Assessment/Plan Assessment: Cholelithiasis Questionable choledocholithiasis on MRCP Nausea/vomiting - improved Right upper quadrant pain s/p EGD 11/23/18: -gastroparesis -gastritis Transaminitis Heroin abuse -on methadone treatment Plan: EGD today with significant retention of gastric contents indicative of gastroparesis. Findings of gastritis. Will obtain NM gastric emptying study Trial of reglan Clear liquids as tolerated. 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 Will hold off for now. Patient seen in collaboration with Result Diagram: 11/24/18 0437 11/24/18 0437 Results 24hrs Laboratory Tests Test 11/24/18 04:37 White Blood Count 7.3 Red Blood Count 3.53 L Hemoglobin 10.4 L Hematocrit 32.0 L Mean Corpuscular Volume 90.7 Mean Corpuscular Hemoglobin 29.5 Mean Corpuscular Hemoglobin Concent 32.5 Red Cell Distribution Width 12.5 Platelet Count 249 Mean Platelet Volume 9.4 Immature Granulocytes % 0.100 Neutrophils % 52.8 Lymphocytes % 31.5 Monocytes % 8.6 Eosinophils % 6.6 Basophils % 0.4 Nucleated Red Blood Cells % 0.0 Immature Granulocytes # 0.010 Neutrophils # 3.9 Lymphocytes # 2.3 Monocytes # 0.6 Eosinophils # 0.5 Basophils # 0.0 Nucleated Red Blood Cells # 0.0 Sodium Level 138 Potassium Level 4.1 Chloride Level 103 Carbon Dioxide Level 28 Anion Gap 7 Blood Urea Nitrogen 10 Creatinine 0.64 Est Glomerular Filtrat Rate mL/min > 60 Glucose Level 120 Calcium Level 8.4 Total Bilirubin 0.2 Direct Bilirubin 0.00 Indirect Bilirubin 0.2 Aspartate Amino Transf (AST/SGOT) 58 H Alanine Aminotransferase (ALT/SGPT) 95 H Alkaline Phosphatase 65 Total Protein 5.6 L Albumin 3.0 L Globulin 2.60 Albumin/Globulin Ratio 1.15 Hepatitis B Surface Antigen NEGATIVE Hepatitis C Antibody NEGATIVE CC: CATERINA HAYWARD Pete ; Subjective 24 Hr Interval Summary Free Text/Dictation Patient denies nausea and vomiting though continues to complain of generalized abdominal pain. She is tolerating some clear liquids. Denies fevers or chills. Exam/Review of Systems Exam Vitals Vital Signs Date Temp Pulse Resp B/P (MAP) Pulse Ox O2 O2 Flow FiO2 Time Delivery Rate 11/24/18 98.2 87 16 115/68 98 Room Air 08:00 (84) 11/23/18 3.0 17:36 Intake and Output 11/23/18 11/23/18 11/24/18 1515:00 23:00 07:00 IntakeIntake Total 1100 ml 1000 ml BalanceBalance 1100 ml 1000 ml Exam PHYSICAL EXAMINATION: GENERAL: Well developed, well nourished, alert & oriented x 3, in no acute distress SKIN: No lesions, no stigmata chronic liver disease, no evidence of bleeding diathesis LYMPHATIC: No palpable lymphadenopathy. HEAD: Normocephalic, atraumatic, no tenderness. EYES: Pupils equal reactive to light and accommodation, full extraocular movements, sclera clear, non-icteric, no discharge. EARS/NOSE AND THROAT: Ears normal, nose normal, oropharynx normal, oral membranes well hydrated without lesions. NECK: Supple, no masses, thyroid normal, JVP within normal limits, carotids normal without bruits. CHEST: Inspection within normal limits. CARDIOVASCULAR: Heart: Regular rate and rhythm, no murmurs, gallops or rubs. Peripheral pulses present within normal limits, no cyanosis, clubbing or edemas. No pulsatile abdominal mass RESPIRATORY: Lungs clear to auscultation and percussion, no wheezing, no rubs GASTROINTESTINAL AND LIVER: Abdomen: Soft, generalized tenderness, non- distended, no hernias, no masses, no organomegaly, no ascites, no guarding, no rebound tenderness, normoactive bowel sounds. Rectal: Deferred. GENITOURINARY: Female genitalia within normal limits. EXTREMITIES: No cyanosis, clubbing or edema. Results Results 24hrs Laboratory Tests Test 11/24/18 04:37 White Blood Count 7.3 Red Blood Count 3.53 L Hemoglobin 10.4 L Hematocrit 32.0 L Mean Corpuscular Volume 90.7 Mean Corpuscular Hemoglobin 29.5 Mean Corpuscular Hemoglobin Concent 32.5 Red Cell Distribution Width 12.5 Platelet Count 249 Mean Platelet Volume 9.4 Immature Granulocytes % 0.100 Neutrophils % 52.8 Lymphocytes % 31.5 Monocytes % 8.6 Eosinophils % 6.6 Basophils % 0.4 Nucleated Red Blood Cells % 0.0 Immature Granulocytes # 0.010 Neutrophils # 3.9 Lymphocytes # 2.3 Monocytes # 0.6 Eosinophils # 0.5 Basophils # 0.0 Nucleated Red Blood Cells # 0.0 Sodium Level 138 Potassium Level 4.1 Chloride Level 103 Carbon Dioxide Level 28 Anion Gap 7 Blood Urea Nitrogen 10 Creatinine 0.64 Est Glomerular Filtrat Rate mL/min > 60 Glucose Level 120 Calcium Level 8.4 Total Bilirubin 0.2 Direct Bilirubin 0.00 Indirect Bilirubin 0.2 Aspartate Amino Transf (AST/SGOT) 58 H Alanine Aminotransferase (ALT/SGPT) 95 H Alkaline Phosphatase 65 Total Protein 5.6 L Albumin 3.0 L Globulin 2.60 Albumin/Globulin Ratio 1.15 Hepatitis B Surface Antigen NEGATIVE Hepatitis C Antibody NEGATIVE Medications Medication Current Medications Dextrose/Sodium Chloride 1,000 ml @ 100 mls/hr Q10H IV Last administered on 11/24/18at 05:43; Admin Dose 100 MLS/HR; Start 11/22/18 at 20:59 IV Flush (NS 3 ml) 3 ml PER PROTOCOL IV ; Start 11/22/18 at 21:00 Ondansetron HCl (Zofran Inj) 4 mg Q6H PRN IV NAUSEA/VOMITING; Start 11/22/18 at 21:00 Methadone HCl (Methadone) 85 mg DAILY@0600 PO Last administered on 11/24/18at 05:42; Admin Dose 85 MG; Start 11/23/18 at 06:00 Ketorolac Tromethamine (Toradol) 30 mg Q6H PRN IV PAIN LEVEL 1-3 Last administered on 11/24/18at 13:20; Admin Dose 30 MG; Start 11/22/18 at 22:00; Stop 11/25/18 at 21:59 Tramadol HCl (Ultram) 50 mg Q6H PRN PO MODERATE PAIN LEVEL 4-6 Last administered on 11/24/18at 02:31; Admin Dose 50 MG; Start 11/23/18 at 03:30 Al Hydrox/Mg Hydrox/Simethicone (Mag-Al Plus) 30 ml Q6H PRN PO GASTROINTESTINAL UPSET Last administered on 11/23/18at 12:56; Admin Dose 30 ML; Start 11/23/18 at 13:00 Nicotine (Nicoderm 21 Mg/ 24hr) 1 patch DAILY TRANSDERM Last administered on 11/23/18at 22:21; Admin Dose 1 PATCH; Start 11/23/18 at 22:00 Magnesium Hydroxide (Milk Of Mag) 30 ml BID PRN PO CONSTIPATION Last administered on 11/24/18at 08:30; Admin Dose 30 ML; Start 11/24/18 at 06:00 Sucralfate (Carafate Susp) 1 gm QID PO ; Start 11/24/18 at 17:00; Stop 12/01/18 at 16:59 Pantoprazole (Protonix Tab) 40 mg DAILY@06 PO ; Start 11/25/18 at 06:00 Pantoprazole (Protonix Tab) 40 mg ONCE ONCE PO ; Start 11/24/18 at 15:00; Stop 11/24/18 at 15:01 MAKENZIE MCDONALD NP Nov 24, 2018 15:09
[2018-11-24] MEDS: METOCLOPRAMIDE 10 MG INJ IV SCH (17:13)
[2018-11-24] MEDS: SUCRALFATE (100 MG/ML) 10ML CUP PO SCH ×2 (17:14→22:15)
[2018-11-24 20:00] VITALS: BP 112/67; PULSE 85; RESP 18
[2018-11-24] MEDS: NICOTINE (21 MG/24 HR) PATCH TRANSDERM SCH (22:17)
[2018-11-25] MEDS: METOCLOPRAMIDE 10 MG INJ IV SCH ×4 (00:51→19:05)
[2018-11-25] MEDS: DEXTROSE 5%-0.45% NACL 1,000 ML IV SCH ×3 (00:57→15:26)
[2018-11-25 02:00] VITALS: BP 124/58; PULSE 87; RESP 18
[2018-11-25] MEDS: METHADONE 10 MG TAB PO SCH (06:22)
[2018-11-25] MEDS: PANTOPRAZOLE (EC) 40 MG TAB PO SCH (06:23)
[2018-11-25 08:18] VITALS: BP 126/73; PULSE 81; RESP 16
[2018-11-25] MEDS: NICOTINE (21 MG/24 HR) PATCH TRANSDERM SCH (09:14)
[2018-11-25] MEDS: SUCRALFATE (100 MG/ML) 10ML CUP PO SCH ×4 (09:14→20:45)
[2018-11-25] MEDS: traMADol 50 MG TAB PO PRN (09:17)
--- NOTE | 2018-11-25 14:45 | PN ---
Date/Time of Note Date/Time of Note DATE: 11/25/18 TIME: 14:42 Assessment/Plan VTE Prophylaxis Risk score (from Nsg)>0 risk: 1 SCD applied (from Nsg): Yes SCD contraindicated: low risk/ambulating Pharmacological prophylaxis: heparin (Examination of) Lines/Catheters IV Catheter Type (from Nrs): Peripheral IV Assessment/Plan Problems: (1) Abdominal pain Status: Acute Comment: Nuclear medicine gastric emptying study is pending at this time. Please note was done after the patient received 3 dosages of IV metoclopramide which may affect the results. It is possible that the patient's retained gastric contents had an endoscopy or a combination of the methadone as well as nicotine. The patient informs me that she only smokes 2 cigarettes a day and as such the 21 mg nicotine patch may be more than she actually needs under the circumstances. 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 Comment: We are block from changing dosage of methadone by the center and less of the life-threatening circumstance which is not what we have (4) Abnormal liver function tests Status: Acute Comment: Recheck in morning (5) Anemia Status: Chronic Comment: 1 dose of IV Ferrlecit Qualifiers: Anemia type: iron deficiency Iron deficiency anemia type: unspecified iron deficiency Qualified Codes: D50.9 - Iron deficiency anemia, unspecified Result Diagram: 11/24/18 0437 11/25/18 0444 Results 24hrs Laboratory Tests Test 11/25/18 04:44 Sodium Level 138 Potassium Level 4.1 Chloride Level 104 Carbon Dioxide Level 27 Anion Gap 7 Blood Urea Nitrogen 7 Creatinine 0.63 Est Glomerular Filtrat Rate mL/min > 60 Glucose Level 93 Calcium Level 8.6 Total Bilirubin 0.2 Direct Bilirubin 0.00 Indirect Bilirubin 0.2 Aspartate Amino Transf (AST/SGOT) 47 H Alanine Aminotransferase (ALT/SGPT) 82 H Alkaline Phosphatase 67 Total Protein 5.9 L Albumin 3.2 L Globulin 2.70 Albumin/Globulin Ratio 1.18 Subjective 24 Hr Interval Summary Free Text/Dictation Patient reports she feels a little bit better than she did yesterday. She has had a nuclear medicine gastric emptying study but results are pending Constitutional: no complaints Respiratory: no complaints Cardiovascular: no complaints Gastrointestinal: nausea Genitourinary: no complaints Exam/Review of Systems Exam Vitals Vital Signs Date Temp Pulse Resp B/P (MAP) Pulse Ox O2 O2 Flow FiO2 Time Delivery Rate 11/25/18 98.0 81 16 126/73 95 08:18 (90) 11/24/18 Room Air 14:06 11/23/18 3.0 17:36 Intake and Output 11/24/18 11/24/18 11/25/18 1515:00 23:00 07:00 IntakeIntake Total 900 ml 1100 ml BalanceBalance 900 ml 1100 ml Constitutional: alert, oriented Respiratory: clear to auscultation, normal air movement Cardiovascular: regular rate and rhythm, nl pulses Results Results 24hrs Laboratory Tests Test 11/25/18 04:44 Sodium Level 138 Potassium Level 4.1 Chloride Level 104 Carbon Dioxide Level 27 Anion Gap 7 Blood Urea Nitrogen 7 Creatinine 0.63 Est Glomerular Filtrat Rate mL/min > 60 Glucose Level 93 Calcium Level 8.6 Total Bilirubin 0.2 Direct Bilirubin 0.00 Indirect Bilirubin 0.2 Aspartate Amino Transf (AST/SGOT) 47 H Alanine Aminotransferase (ALT/SGPT) 82 H Alkaline Phosphatase 67 Total Protein 5.9 L Albumin 3.2 L Globulin 2.70 Albumin/Globulin Ratio 1.18 Medications Medication Current Medications Dextrose/Sodium Chloride 1,000 ml @ 100 mls/hr Q10H IV Last administered on 11/25/18at 00:57; Admin Dose 100 MLS/HR; Start 11/22/18 at 20:59 IV Flush (NS 3 ml) 3 ml PER PROTOCOL IV ; Start 11/22/18 at 21:00 Ondansetron HCl (Zofran Inj) 4 mg Q6H PRN IV NAUSEA/VOMITING; Start 11/22/18 at 21:00 Methadone HCl (Methadone) 85 mg DAILY@0600 PO Last administered on 11/25/18at 06:22; Admin Dose 85 MG; Start 11/23/18 at 06:00 Ketorolac Tromethamine (Toradol) 30 mg Q6H PRN IV PAIN LEVEL 1-3 Last administered on 11/24/18at 21:39; Admin Dose 30 MG; Start 11/22/18 at 22:00; Stop 11/25/18 at 21:59 Tramadol HCl (Ultram) 50 mg Q6H PRN PO MODERATE PAIN LEVEL 4-6 Last administered on 11/25/18 09:17; Admin Dose 50 MG; Start 11/23/18 at 03:30 Al Hydrox/Mg Hydrox/Simethicone (Mag-Al Plus) 30 ml Q6H PRN PO GASTROINTESTINAL UPSET Last administered on 11/23/18 12:56; Admin Dose 30 ML; Start 11/23/18 at 13:00 Nicotine (Nicoderm 21 Mg/ 24hr) 1 patch DAILY TRANSDERM Last administered on 11/25/18 09:14; Admin Dose 1 PATCH; Start 11/23/18 at 22:00 Magnesium Hydroxide (Milk Of Mag) 30 ml BID PRN PO CONSTIPATION Last administered on 11/24/18 08:30; Admin Dose 30 ML; Start 11/24/18 at 06:00 Sucralfate (Carafate Susp) 1 gm QID PO Last administered on 11/25/18 13:03; Admin Dose 1 GM; Start 11/24/18 at 17:00; Stop 12/01/18 at 16:59 Pantoprazole (Protonix Tab) 40 mg DAILY@06 PO Last administered on 11/25/18 06:23; Admin Dose 40 MG; Start 11/25/18 at 06:00 Metoclopramide HCl (Reglan) 10 mg Q6 IV Last administered on 11/25/18 13:03; A dmin Dose 10 MG; Start 11/24/18 at 18:00 DAWN PHAN MD Nov 25, 2018 14:45
[2018-11-25] MEDS ORDERED: SOD FERRIC GLUC COMPLX 125 MG in SOD CHLORIDE 0.9% 100 ML IVPB ONE (16:00)
--- NOTE | 2018-11-25 16:48 | PN ---
Date/Time of Note Date/Time of Note DATE: 11/25/18 TIME: 16:34 Assessment/Plan VTE Prophylaxis Risk score (from Nsg)>0 risk: 1 SCD applied (from Nsg): Yes Pharmacological prophylaxis: heparin Lines/Catheters IV Catheter Type (from Nrsg): Peripheral IV Assessment/Plan Assessment/Plan Assessment: Cholelithiasis Questionable choledocholithiasis on MRCP Nausea/vomiting - improved Right upper quadrant pain s/p EGD 11/23/18: -gastroparesis -gastritis Transaminitis Heroin abuse -on methadone treatment Plan: EGD today with significant retention of gastric contents indicative of gastroparesis. Findings of gastritis. 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 Will hold off for now. Patient seen in collaboration with Subjective: Patient denies nausea and vomiting, report abdominal pain is improved. She is tolerating some clear liquids. She would like to try regular food. Denies fevers or chills. Had gastric emptying study yesterday. Discussed results with patient and mother. Physical exam: PHYSICAL EXAMINATION: GENERAL: Well developed, well nourished, alert & oriented x 3, in no acute distress SKIN: No lesions, no stigmata chronic liver disease, no evidence of bleeding diathesis LYMPHATIC: No palpable lymphadenopathy. HEAD: Normocephalic, atraumatic, no tenderness. EYES: Pupils equal reactive to light and accommodation, full extraocular movements, sclera clear, non-icteric, no discharge. EARS/NOSE AND THROAT: Ears normal, nose normal, oropharynx normal, oral membranes well hydrated without lesions. NECK: Supple, no masses, thyroid normal, JVP within normal limits, carotids normal without bruits. CHEST: Inspection within normal limits. CARDIOVASCULAR: Heart: Regular rate and rhythm, no murmurs, gallops or rubs. Peripheral pulses present within normal limits, no cyanosis, clubbing or edemas. No pulsatile abdominal mass RESPIRATORY: Lungs clear to auscultation and percussion, no wheezing, no rubs GASTROINTESTINAL AND LIVER: Abdomen: Soft, generalized tenderness, non-d istended, no hernias, no masses, no organomegaly, no ascites, no guarding, no rebound tenderness, normoactive bowel sounds. Rectal: Deferred. GENITOURINARY: Female genitalia within normal limits. EXTREMITIES: No cyanosis, clubbing or edema. Result Diagram: 11/24/18 0437 11/25/18 0444 Results 24hrs Laboratory Tests Test 11/25/18 04:44 Sodium Level 138 Potassium Level 4.1 Chloride Level 104 Carbon Dioxide Level 27 Anion Gap 7 Blood Urea Nitrogen 7 Creatinine 0.63 Est Glomerular Filtrat Rate mL/min > 60 Glucose Level 93 Calcium Level 8.6 Total Bilirubin 0.2 Direct Bilirubin 0.00 Indirect Bilirubin 0.2 Aspartate Amino Transf (AST/SGOT) 47 H Alanine Aminotransferase (ALT/SGPT) 82 H Alkaline Phosphatase 67 Total Protein 5.9 L Albumin 3.2 L Globulin 2.70 Albumin/Globulin Ratio 1.18 Exam/Review of Systems Exam Vitals Vital Signs Date Temp Pulse Resp B/P (MAP) Pulse Ox O2 O2 Flow FiO2 Time Delivery Rate 11/25/18 98.0 81 16 126/73 95 08:18 (90) 11/24/18 Room Air 14:06 11/23/18 3.0 17:36 Intake and Output 11/24/18 11/24/18 11/25/18 1414:59 22:59 06:59 IntakeIntake Total 900 ml 1100 ml BalanceBalance 900 ml 1100 ml Results Results 24hrs Laboratory Tests Test 11/25/18 04:44 Sodium Level 138 Potassium Level 4.1 Chloride Level 104 Carbon Dioxide Level 27 Anion Gap 7 Blood Urea Nitrogen 7 Creatinine 0.63 Est Glomerular Filtrat Rate mL/min > 60 Glucose Level 93 Calcium Level 8.6 Total Bilirubin 0.2 Direct Bilirubin 0.00 Indirect Bilirubin 0.2 Aspartate Amino Transf (AST/SGOT) 47 H Alanine Aminotransferase (ALT/SGPT) 82 H Alkaline Phosphatase 67 Total Protein 5.9 L Albumin 3.2 L Globulin 2.70 Albumin/Globulin Ratio 1.18 Imaging Imaging Gastric emptying study 11/24/18: IMPRESSION: 1. Positive gastric emptying study 2. Lack of passage of radiotracer from the stomach into the small bowel. 3. Findings are consistent with complete severe gastroparesis. Medications Medication Current Medications Dextrose/Sodium Chloride 1,000 ml @ 100 mls/hr Q10H IV Last administered on 11/25/18at 15:26; Admin Dose 100 MLS/HR; Start 11/22/18 at 20:59 IV Flush (NS 3 ml) 3 ml PER PROTOCOL IV ; Start 11/22/18 at 21:00 Ondansetron HCl (Zofran Inj) 4 mg Q6H PRN IV NAUSEA/VOMITING; Start 11/22/18 at 21:00 Methadone HCl (Methadone) 85 mg DAILY@0600 PO Last administered on 11/25/18 06:22; Admin Dose 85 MG; Start 11/23/18 at 06:00 Ketorolac Tromethamine (Toradol) 30 mg Q6H PRN IV PAIN LEVEL 1-3 Last administered on 11/24/18 21:39; Admin Dose 30 MG; Start 11/22/18 at 22:00; Stop 11/25/18 at 21:59 Tramadol HCl (Ultram) 50 mg Q6H PRN PO MODERATE PAIN LEVEL 4-6 Last administered on 11/25/18 09:17; Admin Dose 50 MG; Start 11/23/18 at 03:30 Al Hydrox/Mg Hydrox/Simethicone (Mag-Al Plus) 30 ml Q6H PRN PO GASTROINTESTINAL UPSET Last administered on 11/23/18 12:56; Admin Dose 30 ML; Start 11/23/18 at 13:00 Magnesium Hydroxide (Milk Of Mag) 30 ml BID PRN PO CONSTIPATION Last administered on 11/24/18 08:30; Admin Dose 30 ML; Start 11/24/18 at 06:00 Sucralfate (Carafate Susp) 1 gm QID PO Last administered on 11/25/18 13:03; Admin Dose 1 GM; Start 11/24/18 at 17:00; Stop 12/01/18 at 16:59 Pantoprazole (Protonix Tab) 40 mg DAILY@06 PO Last administered on 11/25/18 06:23; Admin Dose 40 MG; Start 11/25/18 at 06:00 Metoclopramide HCl (Reglan) 10 mg Q6 IV Last administered on 11/25/18 13:03; Admin Dose 10 MG; Start 11/24/18 at 18:00 Ferric Sodium Gluconate Complex 125 mg/Sodium Chloride 100 ml @ 100 mls/hr ONCE ONCE IVPB Last administered on 11/25/18 15:57; Admin Dose 100 MLS/HR; Start 11/25/18 at 16:00; Stop 11/25/18 at 16:59 MAKENZIE MCDONALD NP Nov 25, 2018 16:44
[2018-11-25 20:00] VITALS: BP 116/57; PULSE 86; RESP 17
[2018-11-26] MEDS: METOCLOPRAMIDE 10 MG INJ IV SCH ×3 (01:23→11:51)
[2018-11-26] MEDS: METHADONE 10 MG TAB PO SCH (06:31)
[2018-11-26] MEDS: PANTOPRAZOLE (EC) 40 MG TAB PO SCH (06:31)
[2018-11-26] MEDS: DEXTROSE 5%-0.45% NACL 1,000 ML IV SCH ×3 (06:32→16:41)
[2018-11-26 08:03] VITALS: BP 125/70; PULSE 86; RESP 18
[2018-11-26] MEDS: SUCRALFATE (100 MG/ML) 10ML CUP PO SCH ×4 (08:37→21:56)
--- NOTE | 2018-11-26 12:11 | PN ---
Date/Time of Note Date/Time of Note DATE: 11/26/18 TIME: 12:05 Assessment/Plan VTE Prophylaxis Risk score (from Ns)>0 risk: 1 SCD applied (from Ns): Yes Pharmacological prophylaxis: other Pharm contraindication: low risk/ambulating Lines/Catheters IV Catheter Type (from Nrsg): Peripheral IV Assessment/Plan Assessment/Plan 1. Abdominal pain due to gastritis, on protonix and carafate 2. Gastroparesis, on reglan, advance diet 3. Cholelithiasis, asymptomatic 4. History of heroin abuse: On methadone Result Diagram: 11/24/18 0437 11/25/18 0444 Subjective 24 Hr Interval Summary Free Text/Dictation minimal abdominal pain, tolerates liquid diet Exam/Review of Systems Exam Vitals Vital Signs Date Temp Pulse Resp B/P (MAP) Pulse Ox O2 O2 Flow FiO2 Time Delivery Rate 11/26/18 98.9 86 18 125/70 94 08:03 (88) 11/24/18 Room Air 14:06 11/23/18 3.0 17:36 Intake and Output 11/25/18 11/25/18 11/26/18 1515:00 23:00 07:00 IntakeIntake Total 110 ml 1300 ml 1540 ml OutputOutput Total 1 ml BalanceBalance 109 ml 1300 ml 1540 ml Constitutional: alert, oriented, well developed Psych: no complaints, nl mood/affect Head: normocephalic, atraumatic Eyes: nl conjunctiva, EOMI, nl lids, PERRL ENMT: nl external ears & nose, nl lips & teeth, nl nasal mucosa & septum Neck: supple, non-tender Respiratory: clear to auscultation, normal air movement; No congested cough, No crackles/rales, No diminished breath sounds, No intercostal retraction, No labored breathing, No respirations, No tactile fremitus, No wheezing, No other Cardiovascular: regular rate and rhythm, nl pulses; No bruits, No diastolic murmur, No edema, No gallop, No irregular rhythm, No jugular venous distention (JVD), No murmurs/extra sounds, No rub, No systolic murmur, No S3, No S4, No other Gastrointestinal: soft, nl liver, spleen, other (no epigastric tenderness) Musculoskeletal: nl extremities to inspection Extremities: normal pulses; No calf tenderness, No cyanosis, No clubbing, No edema, No pitting pedal ed pam, No palpable cord, No tenderness, No other 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, nl mental status, nl speech, nl strength Skin: nl turgor Medications Medication Current Medications Dextrose/Sodium Chloride 1,000 ml @ 100 mls/hr Q10H IV Last administered on 11/26/18 06:32; Admin Dose 100 MLS/HR; Start 11/22/18 at 20:59 IV Flush (NS 3 ml) 3 ml PER PROTOCOL IV ; Start 11/22/18 at 21:00 Ondansetron HCl (Zofran Inj) 4 mg Q6H PRN IV NAUSEA/VOMITING; Start 11/22/18 at 21:00 Methadone HCl (Methadone) 85 mg DAILY@0600 PO Last administered on 11/26/18 06:31; Admin Dose 85 MG; Start 11/23/18 at 06:00 Tramadol HCl (Ultram) 50 mg Q6H PRN PO MODERATE PAIN LEVEL 4-6 Last administered on 11/25/18 09:17; Admin Dose 50 MG; Start 11/23/18 at 03:30 Al Hydrox/Mg Hydrox/Simethicone (Mag-Al Plus) 30 ml Q6H PRN PO GASTROINTESTINAL UPSET Last administered on 11/23/18 12:56; Admin Dose 30 ML; Start 11/23/18 at 13:00 Magnesium Hydroxide (Milk Of Mag) 30 ml BID PRN PO CONSTIPATION Last administered on 11/24/18 08:30; Admin Dose 30 ML; Start 11/24/18 at 06:00 Sucralfate (Carafate Susp) 1 gm QID PO Last administered on 11/26/18 08:37; Admin Dose 1 GM; Start 11/24/18 at 17:00; Stop 12/01/18 at 16:59 Pantoprazole (Protonix Tab) 40 mg DAILY@06 PO Last administered on 11/26/18 06:31; Admin Dose 40 MG; Start 11/25/18 at 06:00 Metoclopramide HCl (Reglan) 10 mg Q6 IV Last administered on 11/26/18 11:51; Admin Dose 10 MG; Start 11/24/18 at 18:00 JALEN HOGAN MD Nov 26, 2018 12:11
[2018-11-26 14:30] VITALS: BP 116/70; PULSE 94; RESP 18
[2018-11-26] MEDS ORDERED: LORAZEPAM 1 MG TAB PO ONE (17:00)
--- NOTE | 2018-11-26 17:03 | PN ---
Date/Time of Note Date/Time of Note DATE: 11/26/18 TIME: 16:58 Assessment/Plan VTE Prophylaxis Risk score (from Ns)>0 risk: 1 SCD applied (from Nsg): Yes Pharmacological prophylaxis: other (scds) Lines/Catheters IV [facility] Type (from [facility]): Peripheral IV Assessment/Plan Hospital Course Assessment: Cholelithiasis Questionable choledocholithiasis on MRCP Nausea/vomiting - improved EGD 11/23/17 Gastroparesis with significant gastric contents retained despite n.p.o. greater than 8 hours Gastritis Gastric NM study- Findings are consistent with complete severe gastroparesis. 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 LFTs currently trending down. If patient continues to improve she will be cleared from GI point of view for outpatient management likely tomorrow. Physical exam: PHYSICAL EXAMINATION: GENERAL: Well developed, well nourished, alert & oriented x 3, in no acute distress SKIN: No lesions, no stigmata chronic liver disease, no evidence of bleeding diathesis LYMPHATIC: No palpable lymphadenopathy. HEAD: Normocephalic, atraumatic, no tenderness. EYES: Pupils equal reactive to light and accommodation, full extraocular movements, sclera clear, non-icteric, no discharge. EARS/NOSE AND THROAT: Ears normal, nose normal, oropharynx normal, oral membranes well hydrated without lesions. NECK: Supple, no masses, thyroid normal, JVP within normal limits, carotids normal without bruits. CHEST: Inspection within normal limits. CARDIOVASCULAR: Heart: Regular rate and rhythm, no murmurs, gallops or rubs. Peripheral pulses present within normal limits, no cyanosis, clubbing or edemas. No pulsatile abdominal mass RESPIRATORY: Lungs clear to auscultation and percussion, no wheezing, no rubs GASTROINTESTINAL AND LIVER: Abdomen: Soft, generalized tenderness, non- distended, no hernias, no masses, no organomegaly, no ascites, no guarding, no rebound tenderness, normoactive bowel sounds. Rectal: Deferred. GENITOURINARY: Female genitalia within normal limits. EXTREMITIES: No cyanosis, clubbing or edema. Result Diagram: 11/24/18 0437 11/25/18 0444 Exam/Review of Systems Exam Vitals Vital Signs Date Temp Pulse Resp B/P (MAP) Pulse Ox O2 O2 Flow FiO2 Time Delivery Rate 11/26/18 97.8 94 18 116/70 100 14:30 (85) 11/24/18 Room Air 14:06 11/23/18 3.0 17:36 Intake and Output 11/25/18 11/25/18 11/26/18 1515:00 23:00 07:00 IntakeIntake Total 110 ml 1300 ml 1540 ml OutputOutput Total 1 ml BalanceBalance 109 ml 1300 ml 1540 ml Medications Medication Current Medications Dextrose/Sodium Chloride 1,000 ml @ 100 mls/hr Q10H IV Last administered on 11/26/18at 16:41; Admin Dose 100 MLS/HR; Start 11/22/18 at 20:59 IV Flush (NS 3 ml) 3 ml PER PROTOCOL IV ; Start 11/22/18 at 21:00 Ondansetron HCl (Zofran Inj) 4 mg Q6H PRN IV NAUSEA/VOMITING; Start 11/22/18 at 21:00 Methadone HCl (Methadone) 85 mg DAILY@0600 PO Last administered on 11/26/18 06:31; Admin Dose 85 MG; Start 11/23/18 at 06:00 Tramadol HCl (Ultram) 50 mg Q6H PRN PO MODERATE PAIN LEVEL 4-6 Last administe red on 11/25/18at 09:17; Admin Dose 50 MG; Start 11/23/18 at 03:30 Al Hydrox/Mg Hydrox/Simethicone (Mag-Al Plus) 30 ml Q6H PRN PO GASTROINTESTINAL UPSET Last administered on 11/23/18 12:56; Admin Dose 30 ML; Start 11/23/18 at 13:00 Magnesium Hydroxide (Milk Of Mag) 30 ml BID PRN PO CONSTIPATION Last administered on 11/24/18 08:30; Admin Dose 30 ML; Start 11/24/18 at 06:00 Sucralfate (Carafate Susp) 1 gm QID PO Last administered on 4/1/19at 12:31; Admin Dose 1 GM; Start 11/24/18 at 17:00; Stop 12/01/18 at 16:59 Pantoprazole (Protonix Tab) 40 mg DAILY@06 PO Last administered on 11/26/18at 06:31; Admin Dose 40 MG; Start 11/25/18 at 06:00 Metoclopramide HCl (Reglan) 10 mg Q6 PO ; Start 11/26/18 at 18:00 ERASMO BELTRE Nov 26, 2018 17:03
[2018-11-26] MEDS: METOCLOPRAMIDE 10 MG TAB PO SCH (17:05)
[2018-11-26 19:46] VITALS: BP 111/79; PULSE 81; RESP 20
[2018-11-27 02:00] VITALS: BP 102/54; PULSE 94; RESP 18
[2018-11-27] MEDS: METOCLOPRAMIDE 10 MG TAB PO SCH ×4 (06:22→17:10)
[2018-11-27] MEDS: PANTOPRAZOLE (EC) 40 MG TAB PO SCH (06:22)
[2018-11-27] MEDS: METHADONE 10 MG TAB PO SCH (06:24)
[2018-11-27 08:00] VITALS: BP 120/68; PULSE 78; RESP 17
[2018-11-27] MEDS: SUCRALFATE (100 MG/ML) 10ML CUP PO SCH ×3 (09:00→17:10)
[2018-11-27] MEDS: DEXTROSE 5%-0.45% NACL 1,000 ML IV SCH (10:59)
--- NOTE | 2018-11-27 12:25 | PN ---
Date/Time of Note Date/Time of Note DATE: 11/27/18 TIME: 12:25 Assessment/Plan VTE Prophylaxis Risk score (from Ns)>0 risk: 1 SCD applied (from Ns): Yes Pharmacological prophylaxis: other (scds) Lines/Catheters IV Catheter Type (from [facility]): Peripheral IV Assessment/Plan Hospital Course Assessment: Cholelithiasis Questionable choledocholithiasis on MRCP Nausea/vomiting - improved EGD 11/23/17 Gastroparesis with significant gastric contents retained despite n.p.o. greater than 8 hours Gastritis- negative biopsies Gastric NM study- Findings are consistent with complete severe gastroparesis. Right upper quadrant pain S/p EGD 11/23/18: -gastroparesis -gastritis Transaminitis Heroin abuse -on methadone treatment Plan: Continue Reglan x3 weeks max Advance to low fat diet as tolerated Continue Protonix and Carafate x 4weeks Hepatitis serology -negative ASMA,AMA- negative LIANA-pending Patient appears stable from GI point of view for outpatient management Patient seen in collaboration with /Gloria Subjective: Patient tolerating diet well no complaints of abdominal pain nausea or vomiting IV has been removed and patient has declined to place IV back in Patient is also declined black blood draw past 2 days days Physical exam: PHYSICAL EXAMINATION: GENERAL: Well developed, well nourished, alert & oriented x 3, in no acute distress SKIN: No lesions, no stigmata chronic liver disease, no evidence of bleeding diathesis NECK: Supple, no masses CHEST: Inspection within normal limits. CARDIOVASCULAR: Heart: Regular rate and rhythm, RESPIRATORY: Lungs clear to auscultation GASTROINTESTINAL AND LIVER: Abdomen: Soft, generalized tenderness, non- distended, no hernias, no masses, no organomegaly, no ascites, no guarding, no rebound tenderness, normoactive bowel sounds. Rectal: Deferred. GENITOURINARY: Female genitalia within normal limits. EXTREMITIES: No cyanosis, clubbing or edema. Result Diagram: 11/24/18 0437 11/25/18 0444 Exam/Review of Systems Exam Vitals Vital Signs Date Temp Pulse Resp B/P (MAP) Pulse Ox O2 O2 Flow FiO2 Time Delivery Rate 11/27/18 98.0 78 17 120/68 96 Room Air 08:00 (85) 11/23/18 3.0 17:36 Intake and Output 11/26/18 11/26/18 11/27/18 1515:00 23:00 07:00 IntakeIntake Total 50 ml 1500 ml 350 ml BalanceBalance 50 ml 1500 ml 350 ml Medications Medication Current Medications Dextrose/Sodium Chloride 1,000 ml @ 100 mls/hr Q10H IV Last administered on 11/26/18 16:41; Admin Dose 100 MLS/HR; Start 11/22/18 at 20:59 IV Flush (NS 3 ml) 3 ml PER PROTOCOL IV ; Start 11/22/18 at 21:00 Ondansetron HCl (Zofran Inj) 4 mg Q6H PRN IV NAUSEA/VOMITING; Start 11/22/18 at 21:00 Methadone HCl (Methadone) 85 mg DAILY@0600 PO Last administered on 11/27/18 06:24; Admin Dose 85 MG; Start 11/23/18 at 06:00 Tramadol HCl (Ultram) 50 mg Q6H PRN PO MODERATE PAIN LEVEL 4-6 Last admin istered on 11/25/18 09:17; Admin Dose 50 MG; Start 11/23/18 at 03:30 Al Hydrox/Mg Hydrox/Simethicone (Mag-Al Plus) 30 ml Q6H PRN PO GASTROINTESTINAL UPSET Last administered on 11/23/18 12:56; Admin Dose 30 ML; Start 11/23/18 at 13:00 Magnesium Hydroxide (Milk Of Mag) 30 ml BID PRN PO CONSTIPATION Last administered on 11/24/18 08:30; Admin Dose 30 ML; Start 11/24/18 at 06:00 Sucralfate (Carafate Susp) 1 gm QID PO Last administered on 11/27/18 12:08; Admin Dose 1 GM; Start 11/24/18 at 17:00; Stop 12/01/18 at 16:59 Pantoprazole (Protonix Tab) 40 mg DAILY@06 PO Last administered on 11/27/18 06:22; Admin Dose 40 MG; Start 11/25/18 at 06:00 Metoclopramide HCl (Reglan) 10 mg Q6 PO Last administered on 11/27/18 12:08; Admin Dose 10 MG; Start 11/26/18 at 18:00 ERASMO BELTRE Nov 27, 2018 12:25
[2018-11-27 14:20] VITALS: BP 100/59; PULSE 98; RESP 18
[2018-11-27] MEDS ORDERED: METO10TA3 PO (16:46)
[2018-11-27] MEDS ORDERED: CARAS PO (16:47)
[2018-11-27] MEDS ORDERED: PANT40TA4 PO (16:47)
--- NOTE | 2018-11-27 16:53 | DS ---
Date/Time of Note Date/Time of Note DATE: 11/27/18 TIME: 16:48 Discharge Summary Admission/Discharge Info Admit Date/Time Nov 22, 2018 at 18:17 Discharge Date/Time Discharge Diagnosis 1. Gastritis, improved on protonix and carafate 2. Gastroparesis, on reglan 3. Cholelithiasis, asymptomatic 4. History of heroin abuse: On methadone Patient Condition: Stable Hospital Course This is a 22-year-old female with a history of heroin, currently on methadone who initially presented to an outside hospital complaining of abdominal pain. Symptom has been progressively getting worse for the past several weeks. Pain is mainly localized in the right upper quadrant area. She also reported intermittent nausea and vomiting. At the outside facility, ultrasound shows a dilated CBD measuring 10 mm, but no gallstones or pericholecystic fluid. AST and ALT slightly elevated at 48 and 85 respectively. T-bili WNL. WBC 9. MRCP Minimally dilated common bile duct with questionable small stone in the distal common bile duct. There is no intrahepatic duct dilatation, liver enzymes does not support CBD stone. Patient had EGD on 11/23/2018 that revealed gastritis and indications of gastroparesis, nuclear gastric emptying test confirmed gastroparesis. Patient is on protonix and carafate for gastritis, and reglan for gastroparesis. Abdominal pain totally resolved. Patient will follow up with GI and PCP outpatient. Home Meds Active Scripts Sucralfate* (Carafate*) 1 Gm/10 Ml Susp, 1 GM PO QID for 30 Days Prov:JALEN HOGAN MD 11/27/18 Pantoprazole* (Pantoprazole*) 40 Mg Tablet.dr, 40 MG PO DAILY@06 for 30 Days Prov:JALEN HOGAN MD 11/27/18 Metoclopramide Hcl* (Metoclopramide Hcl*) 10 Mg Tablet, 5 MG PO Q6 for 30 Days, TAB Prov:JALEN HOGAN MD 11/27/18 Reported Medications Methadone Hcl* (Methadone*) 10 Mg Tab, 85 MG PO, TAB 11/22/18 [None] No Conflict Check 03/10/12 Follow-up Plan GI and PCP in one week Primary Care Provider Not On Staff Doctor Pending Labs Laboratory Tests Test 11/27/18 12:53 White Blood Count 9.3 10^3/ul (4.8-10.8) Red Blood Count 3.79 10^6/ul (4.20-5.40) Hemoglobin 11.1 g/dl (12.0-16.0) Hematocrit 34.5 % (37.0-47.0) Mean Corpuscular Volume 91.0 fl (82.0-101.0) Mean Corpuscular Hemoglobin 29.3 pg (29.0-33.0) Mean Corpuscular Hemoglobin Concent 32.2 g/dl (32.0-37.0) Red Cell Distribution Width 13.0 % (11.5-14.5) Platelet Count 278 10^3/UL (140-415) Mean Platelet Volume 9.1 fl (7.4-10.4) Immature Granulocytes % 0.400 % (0.001-0.429) Neutrophils % 60.0 % (39.0-77.0) Lymphocytes % 25.5 % (15.0-51.0) Monocytes % 8.3 % (0.0-11.0) Eosinophils % 5.3 % (0.0-7.0) Basophils % 0.5 % (0.0-2.0) Nucleated Red Blood Cells % 0.0 /100WBC (0.0-0.0) Immature Granulocytes # 0.040 10^3/ul (0.0-0.031) Neutrophils # 5.6 10^3/ul (1.6-7.5) Lymphocytes # 2.4 10^3/ul (0.8-2.9) Monocytes # 0.8 10^3/ul (0.3-0.9) Eosinophils # 0.5 10^3/ul (0.0-0.5) Basophils # 0.1 10^3/ul (0.0-0.1) Nucleated Red Blood Cells # 0.0 10^3/ul (0.0-0.0) Sodium Level 138 mmol/L (135-144) Potassium Level 3.8 mmol/L (3.5-5.1) Chloride Level 103 mmol/L (97-110) Carbon Dioxide Level 27 mmol/L (21-31) Anion Gap 8 (5-13) Blood Urea Nitrogen 10 mg/dl (7-20) Creatinine 0.68 mg/dl (0.44-1.00) Est Glomerular Filtrat Rate mL/min > 60 mL/min (>60) Glucose Level 97 mg/dl (70-220) Calcium Level 8.9 mg/dl (8.4-10.2) Total Bilirubin 0.4 mg/dl (0.2-1.3) Direct Bilirubin 0.00 mg/dl (0.00-0.20) Indirect Bilirubin 0.4 mg/dl (0-1.1) Aspartate Amino Transf (AST/SGOT) 40 IU/L (15-46) Alanine Aminotransferase (ALT/SGPT) 72 IU/L (13-69) Alkaline Phosphatase 73 IU/L (42-121) Total Protein 6.2 g/dl (6.1-8.1) Albumin 3.5 g/dl (3.3-4.9) Globulin 2.70 g/dl (1.3-3.2) Albumin/Globulin Ratio 1.29 JALEN HOGAN MD Nov 27, 2018 16:53
== END 2018-11-27 17:17 | disposition home or self-care (01) | DRG 392 ==
LOC: PP2 18:17
PROVIDERS: ADMIT Hospitalist; ATTEND Internal Medicine
PROC: 0DB68ZX Excision of Stomach, Via Natural or Artificial Opening Endoscopic, Diagnostic (ICD-10-PCS; 2018-11-23)
PROC: 0DB58ZX Excision of Esophagus, Via Natural or Artificial Opening Endoscopic, Diagnostic (ICD-10-PCS; 2018-11-23)
PROC: 0DB98ZX Excision of Duodenum, Via Natural or Artificial Opening Endoscopic, Diagnostic (ICD-10-PCS; principal; 2018-11-23 16:30)
DX: K31.84 Gastroparesis (principal); F11.20 Opioid dependence, uncomplicated; K80.70 Calculus of gallbladder and bile duct without cholecystitis without obstruction; K29.70 Gastritis, unspecified, without bleeding; D64.9 Anemia, unspecified
CPT/HCPCS: 74181; 78264; 80053; 80061; 83036; 83540; 83690; 83735; 84100; 85025; 86038; 86255; 86803; 87340; 88305; 88312; 88313; A9541; J1885; J2060; J2250; J2765; J2916; J7042